=== PATIENT | male | born 1985 ===

== ENCOUNTER 2024-07-08 10:23 | Emergency (ER) | payer OTHER ==
[~2024-07-08] VITALS: Ht 172.7 cm; Wt 100.0 kg
[2024-07-08 10:44] VITALS: TEMP 98.5
[2024-07-08 11:00] VITALS: BP 152/88; PULSE 68; RESP 16; O2SAT 99
[2024-07-08] MEDS: LIDOCAINE 5% TRANSDERMAL PATCH TD ONE (11:34)
[2024-07-08] MEDS: IBUPROFEN 600 MG TABLET PO ONE (11:35)
== END 2024-07-08 11:58 | disposition home or self-care (01) ==
LOC: EMS 10:23
DX: S16.1XXA Strain of muscle, fascia and tendon at neck level, initial encounter (principal); I10 Essential (primary) hypertension; V89.2XXA Person injured in unspecified motor-vehicle accident, traffic, initial encounter; Y93.89 Activity, other specified; Y92.89 Other specified places as the place of occurrence of the external cause; Y99.8 Other external cause status
CPT/HCPCS: 99283